=== PATIENT | female | born 1985 | race African-American/Black ===

== ENCOUNTER → 2020-05-15 | Emergency (ER) | payer SELFPAY ==
[~2020-05-15] VITALS: Ht 160 cm; Wt 65.8 kg
[~2020-05-15] MED LIST: DiphenhydrAMINE 50mg/ml Inj IVP ONE; IBUPROFEN600 M1 ORAL; Ketorolac 30mg Inj IV ONE; Metoclopramide 10mg/2ml Inj IVP ONE; REGLAN10 M1 ORAL
--- NOTE | 2020-05-15 02:29 | Emergency Room Report ---
History of Present Illness General Chief Complaint: Headache Source: Patient Present Illness HPI Patient is a 35-year-old female denies any significant past medical history who presents the ER complaining of headache on and off for 1 week. She states that it is a mild generalized headache. She denies any trauma. She denies sudden onset. She denies any blurry vision or neck stiffness. Patient denies any f ever or chills. Patient also complains of right foot pain. She states it swollen in the middle. She cannot recall any trauma. She is able to ambulate. 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 Patient History Reviewed Nursing Documentation: PMH: Agreed; PSxH: Agreed Review of Systems All Other Systems: negative except mentioned in HPI Physical Exam Vital Signs Date Time Temp Pulse Resp B/P (MAP) Pulse Ox O2 Delivery O2 Flow Rate FiO2 05/15/20 01:41 97.2 87 18 123/86 (98) 97 Room Air Sp02 EP Interpretation: reviewed, normal General Appearance: no apparent distress, alert, GCS 15, non-toxic, other - Disheveled Head: normocephalic, atraumatic Eyes: bilateral eye normal inspection, bilateral eye PERRL ENT: other - Edentulous Neck: full range of motion, no meningismus Respiratory: no respiratory distress, no accessory muscle use, speaking full sentences Cardiovascular #1: regular rate, rhythm Gastrointestinal: non tender, soft, no guarding, no rebound Rectal: deferred Musculoskeletal: other - Right midfoot swelling no erythema no obvious deformity mild tenderness to palpation no crepitus, warm extremity 2+ pedal pulses no evidence of cellulitis Neurologic: court reporter III-XII nml as tested, oriented x3 Psychiatric: no suicidal/homicidal ideation Skin: no rash Lymphatic: no adenopathy Medical Decision Making Diagnostic Impression: Primary Impression: Headache Additional Impression: Foot pain, right ER Course Patient's foot x-ray demonstrates no acute abnormalities. Patient declining any medication for headache or foot pain. I suspect the headache that the patient is presenting with is non-emergent in etiology. Meningitis and encephalitis were considered unlikely given patient has no significant fever, focal neurological deficits, petechiae, seizure like symptoms, nuchal rigidity, kernig sign, or brudzinski sign. Ischemic and hemorrhagic CVA also considered unlikely given no new focal neurological deficits, amnesia, slurred speech, or aphasia. In addition, patient reports gradual onset of MARQUEZ and not a sudden onset/severe MARQUEZ so I highly doubt SAH. Head CT was negative for any acute abnormal findings and laboratory findings reviewed and showed no acute abnormalities suggestive of infection. The patient was counseled that, though unlikely, the possibility of an emergent cause of headache may still be present and that the patient should return immediately if symptoms persists or worsen. I believe the patient is stable for discharge to follow-up with their PMD. Laboratory Tests Test 05/15/20 02:33 White Blood Count 3.6 K/UL (4.8-10.8) L Red Blood Count 3.83 M/UL (4.20-5.40) L Hemoglobin 11.1 G/DL (12.0-16.0) L Hematocrit 34.9 % (37.0-47.0) L Mean Corpuscular Volume 91 FL (80-99) Mean Corpuscular Hemoglobin 28.9 PG (27.0-31.0) Mean Corpuscular Hemoglobin Concent 31.7 G/DL (32.0-36.0) L Red Cell Distribution Width 15.5 % (11.6-14.8) H Platelet Count 218 K/UL (150-450) Mean Platelet Volume 7.2 FL (6.5-10.1) Neutrophils (%) (Auto) 48.1 % (45.0-75.0) Lymphocytes (%) (Auto) 40.9 % (20.0-45.0) Monocytes (%) (Auto) 6.7 % (1.0-10.0) Eosinophils (%) (Auto) 3.0 % (0.0-3.0) Basophils (%) (Auto) 1.4 % (0.0-2.0) Urine Color Pale yellow Urine Appearance Clear Urine pH 8 (4.5-8.0) Urine Specific [place] 1.015 (1.005-1.035) Urine Protein Negative (NEGATIVE) Urine Glucose (UA) Negative (NEGATIVE) Urine Ketones Negative (NEGATIVE) Urine Blood Negative (NEGATIVE) Urine Nitrite Negative (NEGATIVE) Urine Bilirubin Negative (NEGATIVE) Urine Urobilinogen Normal MG/DL (0.0-1.0) Urine Leukocyte Esterase Negative (NEGATIVE) Urine HCG, Qualitative Negative (NEGATIVE) Sodium Level 136 MMOL/L (136-145) Potassium Level 3.8 MMOL/L (3.5-5.1) Chloride Level 103 MMOL/L (98-107) Carbon Dioxide Level 29 MMOL/L (21-32) Anion Gap 4 mmol/L (5-15) L Blood Urea Nitrogen 16 mg/dL (7-18) Creatinine 0.7 MG/DL (0.55-1.30) Estimated Glomerular Filtration Rate > 60 mL/min (>60) Glucose Level 76 MG/DL (74-106) Calcium Level 8.9 MG/DL (8.5-10.1) Magnesium Level 1.9 MG/DL (1.8-2.4) Total Bilirubin 0.2 MG/DL (0.2-1.0) Aspartate Amino Transferase (AST) 31 U/L (15-37) Alanine Aminotransferase (ALT) 31 U/L (12-78) Alkaline Phosphatase 105 U/L (46-116) Total Protein 6.9 G/DL (6.4-8.2) Albumin 3.2 G/DL (3.4-5.0) L Globulin 3.7 g/dL Albumin/Globulin Ratio 0.9 (1.0-2.7) L Urine Opiates Screen Negative (NEGATIVE) Urine Barbiturates Screen Negative (NEGATIVE) Phencyclidine (PCP) Screen Negative (NEGATIVE) Urine Amphetamines Screen Negative (NEGATIVE) Urine Benzodiazepines Screen Negative (NEGATIVE) Urine Cocaine Screen Negative (NEGATIVE) Urine Marijuana (THC) Screen Negative (NEGATIVE) Other X-Ray Diagnostic Results Other X-Ray Diagnostic Results : X-Ray ordered: R foot # of Views/Limited Vs Complete: 3 View Indication: Pain EP Interpretation: Yes Interpretation: no dislocation, no soft tissue swelling, no fractures Impression: No acute disease Electronically Signed by: Karla Reynoso MD Last Vital Signs Date Time Temp Pulse Resp B/P (MAP) Pulse Ox O2 Delivery O2 Flow Rate FiO2 05/15/20 01:41 97.2 87 18 123/86 (98) 97 Room Air Disposition: HOME, SELF-CARE Condition: Stable Referrals: NOT CHOSEN IPA/,REFERRING (PCP) Additional Instructions: The patient was provided with discharge instructions, notified to follow-up with a primary care doctor and or specialist in the next 24-48 hours, and to return to the ED if they have worsening of their symptoms. Please note that this report is being documented using [employer] technology. This can lead to erroneous entry secondary to incorrect interpretation by the dictating instrument. Karla Reynoso M.D. May 15, 2020 02:29
[2020-05-15 02:53] LABS: APPEARANCE,URINE CLEAR; BILIRUBIN, URINE NEGATIVE (NEGATIVE); COLOR,URINE PALE YELLOW; GLUCOSE, URINE (UA) NEGATIVE (NEGATIVE); KETONES,URINE NEGATIVE (NEGATIVE); LEUKOCYTE ESTERASE ,URINE NEGATIVE (NEGATIVE); NITRITE,URINE NEGATIVE (NEGATIVE); PH,URINE 8 (4.5-8.0); PROTEIN,URINE NEGATIVE (NEGATIVE); UROBILINOGEN,URINE NORMAL MG/DL (0.0-1.0)
[2020-05-15 02:55] LABS: BASOPHILS % (AUTO) 1.4 % (0.0-2.0); HEMATOCRIT 34.9 % (37.0-47.0); HEMOGLOBIN 11.1 G/DL (12.0-16.0); LYMPHOCYTES % (AUTO) 40.9 % (20.0-45.0); MEAN CORPUSCULAR VOLUME 91 FL (80-99); MONOCYTES % (AUTO) 6.7 % (1.0-10.0); NEUTROPHILS % (AUTO) 48.1 % (45.0-75.0); PLATELET COUNT 218 K/UL (150-450); RED BLOOD COUNT 3.83 M/UL (4.20-5.40); RED CELL DISTRIBUTION WIDTH 15.5 % (11.6-14.8); WHITE BLOOD COUNT 3.6 K/UL (4.8-10.8)
[2020-05-15 02:58] LABS: ANION GAP 4 mmol/L (5-15); BLOOD UREA NITROGEN 16 mg/dL (7-18); CALCIUM 8.9 MG/DL (8.5-10.1); CARBON DIOXIDE 29 MMOL/L (21-32); CHLORIDE 103 MMOL/L (98-107); CREATININE 0.7 MG/DL (0.55-1.30); POTASSIUM 3.8 MMOL/L (3.5-5.1); SODIUM 136 MMOL/L (136-145)
--- NOTE | 2020-05-15 03:00 | NUR ---
ED Nurse Note: attempted IV 2x patient refused to allow me to attempt another blood draw, she got aggressive and rude and began to raise her voice, I informed her I would get the ore charger to assist her
--- NOTE | 2020-05-15 03:00 | NUR ---
patient brought in through ambulatory triage complaints of migraine
[2020-05-15 03:03] LABS: ALANINE AMINOTRANSFERASE 31 U/L (12-78); ALBUMIN 3.2 G/DL (3.4-5.0); ALBUMIN/GLOBULIN RATIO 0.9 (1.0-2.7); ALKALINE PHOSPHATASE 105 U/L (46-116); ASPARTATE AMINO TRANSFERASE 31 U/L (15-37); BILIRUBIN,TOTAL 0.2 MG/DL (0.2-1.0)
--- NOTE | 2020-05-15 03:42 | Diagnostic Imaging Report ---
EXAM: XR Right Foot Complete, 3 or More Views CLINICAL HISTORY: PAIN TECHNIQUE: Frontal, lateral and oblique views of the right foot. COMPARISON: No relevant prior studies available. FINDINGS: Bones/joints: No fracture or malalignment. Enthesophyte at the calcaneal base. Soft tissues: Unremarkable. IMPRESSION: No fracture or malalignment.
--- NOTE | 2020-05-15 03:51 | Diagnostic Imaging Report ---
EXAM: CT Head Without Intravenous Contrast CLINICAL HISTORY: H/A TECHNIQUE: Axial computed tomography images of the head/brain without intravenous contrast. CTDI is 53 mGy and DLP is 1045 mGy-cm. One or more of the following dose reduction techniques were used: automated exposure control, adjustment of the mA and/or kV according to patient size, use of iterative reconstruction technique. COMPARISON: No relevant prior studies available. FINDINGS: Brain: No hemorrhage, extra-axial fluid collection, mass effect, or edema. Ventricles: Unremarkable. Bones/joints: Unremarkable. No fracture. Soft tissues: Unremarkable. Sinuses: Unremarkable as visualized. Mastoid air cells: Unremarkable as visualized. IMPRESSION: 1. No acute intracranial abnormality.
[2020-05-15 04:02] VITALS: BP 120/78
[2020-05-15 04:08] VITALS: BP 138/86
== END | disposition home or self-care (01) ==
LOC: EDBD → EMR 01:55
DX: R51.9 Headache, unspecified (principal); M25.571 Pain in right ankle and joints of right foot
CPT/HCPCS: 36415; 70450; 73630; 80053; 80307; 81003; 81025; 83735; 85025; 96360; 99284; J7030; J2765

== ENCOUNTER 2020-05-17 21:20 | Emergency (ER) | payer SELFPAY ==
[~2020-05-17] VITALS: Ht 160 cm; Wt 63.5 kg
[~2020-05-17 21:20] MED LIST changes: -DiphenhydrAMINE 50mg/ml Inj IVP ONE; -Ketorolac 30mg Inj IV ONE; -Metoclopramide 10mg/2ml Inj IVP ONE
[2020-05-17 21:25] VITALS: BP 128/69
[2020-05-17 21:32] VITALS: BP 128/69
--- NOTE | 2020-05-17 21:32 | NUR ---
ED Nurse Note: Pt placed in RME. Pt walked into ED c/o migraine for 2 days. Pt expressing flight of ideas, able to be reoriented.
--- NOTE | 2020-05-17 21:35 | NUR ---
ED Nurse Note: Pt became visibly upset saying statements such as "These ladies are telling me [place]'m in the [place]" Pt grabbed her belongings and walked out without seeing EDMD.
--- NOTE | 2020-05-17 21:36 | NUR ---
ED Nurse Note: EDMD and charge nurse informed pt left without being seen.
--- NOTE | 2020-05-17 21:37 | Emergency Room Report ---
History of Present Illness General Chief Complaint: Headache Source: Patient, Medical Record Present Illness HPI Is a 34-year-old female who presents with chief complaint of headache. Is been ongoing for over a month. She was here few days ago had negative blood work and CAT scan of the head. She checked then today with a different name. She claimed that it is her legal name and she has 2 different names. She also has been here before under different names. She said that her pain is so worse that her head swell up. No nausea or vomiting. No fever chills. Pain is 10 out of 10. Also complaint of feet pain. I saw her walking here from the bus stop with out any problem. There is no trauma. 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 Patient History Past Medical History: see triage record, old chart reviewed Past Surgical History: none Pertinent Family History: none Social History: Denies: smoking Now: No Immunizations: other Reviewed Nursing Documentation: PMH: Agreed; PSxH: Agreed Nursing Documentation-PMH Past Medical History: No Stated History Review of Systems Eye: Denies: eye pain, blurred vision ENT: Denies: ear pain, nose congestion, throat swelling Respiratory: Denies: cough, shortness of breath Cardiovascular: Denies: chest pain, palpitations Gastrointestinal: Denies: abdominal pain, diarrhea, nausea, vomiting Musculoskeletal: Denies: back pain, joint pain Skin: Denies: rash Neurological: Reports: headache; Denies: numbness Endocrine: Denies: increased thirst, increased urine Hematologic/Lymphatic: Denies: easy bruising All Other Systems: negative except mentioned in HPI Physical Exam Vital Signs Date Time Temp Pulse Resp B/P (MAP) Pulse Ox O2 Delivery O2 Flow Rate FiO2 05/17/20 21:25 98.1 80 16 128/69 (88) 96 Room Air Vitals normal Sp02 EP Interpretation: reviewed, normal General Appearance: well appearing, no apparent distress, alert, other - pt looks much older than her stated age. Head: normocephalic, atraumatic Eyes: bilateral eye PERRL, bilateral eye EOMI ENT: hearing grossly normal, normal pharynx Neck: full range of motion, supple, no meningismus Respiratory: chest non-tender, lungs clear, normal breath sounds Cardiovascular #1: regular rate, rhythm, no murmur Gastrointestinal: normal bowel sounds, non tender, no mass, no organomegaly, no bruit, non-distended Musculoskeletal: back normal, normal range of motion, gait/station normal Psychiatric: mood/affect normal Medical Decision Making Diagnostic Impression: Primary Impression: Headache Qualified Codes: R51.9 - Headache, unspecified Additional Impression: Malingering ER Course Presents with headache. She is stable but she is walking around without any issue. No focal deficit. No evidence of meningitis, bleed or neoplastic process. Discharged home. Last Vital Signs Date Time Temp Pulse Resp B/P (MAP) Pulse Ox O2 Delivery O2 Flow Rate FiO2 05/17/20 21:25 98.1 80 16 128/69 (88) 96 Room Air Status: unchanged Disposition: HOME, SELF-CARE Condition: Stable Patient Instructions: General Headache Without Cause Additional Instructions: Follow-up with your doctor in 7 days. Return if symptoms worsen. Hitesh Stubbs MD May 17, 2020 21:37
== END 2020-05-17 21:35 | disposition home or self-care (01) ==
LOC: EMR 21:35
DX: R51.9 Headache, unspecified (principal); Z76.5 Malingerer [conscious simulation]
CPT/HCPCS: 99281